=== PATIENT | female | born 1975 | race Caucasian/White ===

== ENCOUNTER 2017-12-07 00:15 | Outpatient (CLI) | payer BC, SELFPAY ==
--- NOTE | 2017-12-07 14:05 | DI.MAMMO_ITS ---
SYMPTOMS/DIAGNOSIS: 6 MO F/U LT BREAST, DUE FOR BILATERAL MAMMOGRAM: Mammograms were interpreted according to the usual protocol including computer analysis with CAD system, tomosynthesis and C view imaging. Comparison with prior examinations. Breast density B. No masses or microcalcifications are seen. There is nothing to suggest malignancy. IMPRESSION: Negative mammogram. Routine screening is recommended. Category I. MQSA ASSESSMENT OF FINDINGS: Negative. Category 1. Patient will receive a letter notifying them of these results. BI-RADS category B. There are scattered areas of fibroglandular density.
== END 2017-12-07 00:35 ==
PROVIDERS: PCP Internal Medicine; Visit Provider Nurse Practitioner Family
DX: Z12.31 Encounter for screening mammogram for malignant neoplasm of breast (principal); R92.8 Other abnormal and inconclusive findings on diagnostic imaging of breast; N64.59 Other signs and symptoms in breast
CPT/HCPCS: 77062; 77066; G0279

== ENCOUNTER 2017-12-07 15:24 | Outpatient (REF) | payer BC, SELFPAY ==
--- NOTE | 2017-12-07 14:45 | PAPFT_PTH ---
PATIENT: Isabel Gallardo LOC: [facility] U#:[id number] AGE/SX: 42/F ROOM: RE12/07/[address]: DARYN Garcia : 1975 BED: DIS: 12/07/2017 SPEC #: [id number] RECD: 12/07/17 17:11 STATUS: JESSICA REJorge #: [id number] EDUARDO: 12/07/17 14:[address]: Ginette Trinh DEPT: [facility] Cytology RECD BY: Kortney Fontenot ENTERED: 12/07/17 17:11 SP TYPE: PAPFT OTHR DR: Nathen Gan Tissues: 1 - CX/ENDOCX FOR PAP SMEARS Procedures: PAP THIN PREP/UVM Screening HPV DNA PROBE Comments: [id number]
== END 2017-12-07 15:44 ==
LOC: LBN 15:24
PROVIDERS: PCP Internal Medicine; Visit Provider Nurse Practitioner Family
DX: Z12.4 Encounter for screening for malignant neoplasm of cervix (principal); Z11.51 Encounter for screening for human papillomavirus (HPV)
CPT/HCPCS: 88142; 87624

== ENCOUNTER 2018-03-18 08:24 | Outpatient (REF) | payer BC, SELFPAY ==
[2018-03-18 15:18] LABS: Cholesterol 248 mg/dL (50-200); Glucose 88 mg/dL (70-100); HDL Cholesterol 87 mg/dL (40-60); LDL CHOLESTEROL 143 mg/dL (<100); T4 11.8 ug/dL (4.5-12.5); TSH 1.92 uIU/mL (0.358-3.74); Triglyceride 87 mg/dL (30-150)
== END 2018-03-18 08:44 ==
LOC: NCHCN 08:24
PROVIDERS: PCP Internal Medicine; Visit Provider Family Medicine
DX: Z13.220 Encounter for screening for lipoid disorders (principal)
CPT/HCPCS: 80061; 82947; 83721; 84436; 84443

== ENCOUNTER 2019-01-31 01:14 | Outpatient (CLI) | payer BC, SELFPAY ==
--- NOTE | 2019-01-31 13:00 | DI.MAMMO_ITS ---
EXAM: MG MAMMO SCREENING CLINICAL HISTORY: SCREENING TECHNIQUE: Bilateral full field digital CC and MLO mammographic images were obtained with 3D tomosyn thesis and utilizing computer aided detection (CAD). COMPARISON: Available for comparison. FINDINGS: Masses/Architectural Distortion: There is asymmetric tissue in the outer right breast seen on the aircraft maintenance technician niocaudad view. This area should be further evaluated with additional views and a right breast ultra sound. Microcalcifications: No suspicious pleomorphic-type are seen. Skin Thickening/Nipple Retraction: None. IMPRESSION: 1. Asymmetric breast tissue in the outer right breast as seen on the craniocaudad view. 2. Additional views of the right breast and right breast ultrasound are recommended for further evalu ation. BI-RADS Cat 0 - Assessment Incomplete: Need additional imaging evaluation Breast Density - Category B - Scattered areas of fibroglandular density A negative radiographic report should not delay biopsy if a dominant or clinically suspicious mass is present. Up to ten percent of cancers are not identified on mammography. A negative report may reinforce clinical impression. Adenosis and dense breasts may obscure an underlying neoplasm. False positive reports average 6 to 10%. Patient will receive a letter notifying them of these results.
== END 2019-01-31 01:34 ==
PROVIDERS: PCP Internal Medicine; Visit Provider Nurse Practitioner Family
DX: Z12.31 Encounter for screening mammogram for malignant neoplasm of breast (principal); R92.8 Other abnormal and inconclusive findings on diagnostic imaging of breast
CPT/HCPCS: 77063; 77067

== ENCOUNTER 2019-02-04 00:54 | Outpatient (CLI) | payer BC, SELFPAY ==
--- NOTE | 2019-02-04 09:13 | DI.MAMMO_ITS ---
EXAM: MG MAMMO SCREEN CALL BACK UNI CLINICAL HISTORY: F/U MAMMO, ASYMMETRIC TISSUE RT BREAST TECHNIQUE: Cc spot compression views with tomography were performed of the lateral right breast. COMPARISON: 2013 through 31 January 2019. FINDINGS: The additional views show no persistent mass or other suspicious abnormality. IMPRESSION: BI-RADS category 1, negative mammogram. Yearly screening mammography is recommended. BI-RADS Cat 1 - Negative. Breast Density - Category B - Scattered areas of fibroglandular density.
== END 2019-02-04 01:14 ==
PROVIDERS: PCP Internal Medicine; Visit Provider Nurse Practitioner Family
DX: Z12.31 Encounter for screening mammogram for malignant neoplasm of breast (principal); R92.8 Other abnormal and inconclusive findings on diagnostic imaging of breast; N64.59 Other signs and symptoms in breast
CPT/HCPCS: 77063; 77067

== ENCOUNTER 2019-02-10 17:16 | Outpatient (REF) | payer BC, SELFPAY ==
[2019-02-10 21:20] LABS: FREE T4 1.07 ng/dL (0.76-1.46); TSH 1.59 uIU/mL (0.36-3.74)
== END 2019-02-10 17:36 ==
LOC: NCHCN 17:16
PROVIDERS: PCP Internal Medicine; Visit Provider Internal Medicine
DX: Z00.00 Encounter for general adult medical examination without abnormal findings (principal); E03.9 Hypothyroidism, unspecified; E04.2 Nontoxic multinodular goiter; E66.9 Obesity, unspecified
CPT/HCPCS: 84439; 84443

== ENCOUNTER 2019-07-10 00:54 | Outpatient (CLI) | payer BC, SELFPAY ==
--- NOTE | 2019-07-10 14:37 | DI.US_ITS ---
EXAM: US PELVIS AND TRANSVAGINAL CLINICAL HISTORY: POSTMENOPAUSAL BLEEDING, M95.0. TECHNIQUE: Transabdominal and transvaginal pelvic ultrasound was performed using standard protocol. COMPARISON: No exams were available for comparison FINDINGS: KIDNEYS: Kidneys are symmetric in size. No evidence of renal calculi. No evidence of hydronephrosis. No renal mass or cyst identified. UTERUS: Position: Anteverted. Size: 1.3 x 3.1 x 4.2 cm Endometrium: 0.2 cm. Normal for patient's menstrual status. Myometrium: Unremarkable. Cervix: Unremarkable. OVARIES: Right: 1.8 x 1.1 cm Cyst or mass: None. Left: Not definitively visualized transabdominally or transvaginally. No left adnexal masses identified. DOPPLER: Color: Symmetric and uniform flow to the right ovary. No hyperemia. Duplex: Normal right ovarian arterial waveform visualized. CUL-DE-SAC: Free fluid: None. Other: None. IMPRESSION: 1. Normal sonographic appearance of the kidneys. 2. Normal-appearing uterus with endometrial stripe within normal limits. 3. Unremarkable right ovary. The left ovary was not definitively visualized sonographically. No lef t adnexal mass is identified sonographically. DATA REPOSITORY:
== END 2019-07-10 01:14 ==
PROVIDERS: PCP Internal Medicine; Visit Provider Nurse Practitioner Family
DX: N95.0 Postmenopausal bleeding (principal)
CPT/HCPCS: 76830; 76856

== ENCOUNTER 2020-02-09 15:11 | Outpatient (REF) | payer BC, SELFPAY ==
[2020-02-11 15:53] LABS: Patient Race White; SARS-CoV-2 RNA Undetected (Undetected); SARS-CoV-2 Specimen Source Nasal
== END 2020-02-09 15:31 ==
LOC: NCHCN 15:11
PROVIDERS: PCP Internal Medicine; Visit Provider Internal Medicine
DX: Z20.828 Contact with and (suspected) exposure to other viral communicable diseases (principal)
CPT/HCPCS: U0003

== ENCOUNTER 2020-04-07 18:03 | Outpatient (REF) | payer BC, SELFPAY ==
[2020-04-07 14:47] LABS: FREE T4 1.23 ng/dL (0.76-1.46); Glucose 91 mg/dL (74-106); TSH 1.61 uIU/mL (0.36-3.74)
[2020-04-07 15:12] LABS: Calculated LDL 108 mg/dL (<100); Cholesterol 208 mg/dL (<200); HDL Cholesterol 78 mg/dL (40-60); Triglyceride 110 mg/dL (<150)
== END 2020-04-07 18:23 ==
LOC: NCHCN 18:03
PROVIDERS: PCP Internal Medicine; Visit Provider Internal Medicine
DX: Z00.00 Encounter for general adult medical examination without abnormal findings (principal); E03.9 Hypothyroidism, unspecified; E16.2 Hypoglycemia, unspecified
CPT/HCPCS: 80061; 82947; 84439; 84443

== ENCOUNTER 2020-06-07 15:11 | Outpatient (REF) | payer BC, SELFPAY ==
--- NOTE | 2020-06-07 13:30 | PAPFT_PTH ---
PATIENT: Isabel Gallardo LOC: [facility] U#:[id number] AGE/SX: 44/F ROOM: RE06/07/[address]: DARYN Garcia : 1975 BED: DIS: 06/07/2020 SPEC #: [id number] RECD: 06/07/20 18:13 STATUS: JESSICA REQ #: [id number] EDUARDO: 06/07/20 13:[address]: iGnette Trinh DEPT: [facility] Cytology RECD BY: Kortney Fontenot ENTERED: 06/07/20 18:13 SP TYPE: PAPFT OTHR DR: Nathen Gan Tissues: 1 - CX/ENDOCX FOR PAP SMEARS Procedures: PAP THIN PREP/UVM Screening HPV DNA PROBE Comments: [id number]
== END 2020-06-07 15:12 | disposition home or self-care (01) ==
LOC: LBN 15:11
PROVIDERS: PCP Internal Medicine; Visit Provider Nurse Practitioner Family
DX: Z12.4 Encounter for screening for malignant neoplasm of cervix (principal); Z11.51 Encounter for screening for human papillomavirus (HPV)
CPT/HCPCS: 88142; 87624

== ENCOUNTER 2020-07-12 01:08 | Outpatient (CLI) | payer BC, SELFPAY ==
--- NOTE | 2020-07-12 06:15 | DI.MAMMO_ITS ---
Exam(s) MAMMO SCREENING EXAM: MAMMO SCREENING CLINICAL HISTORY: screening,Z12.39 TECHNIQUE: Bilateral full field digital CC and MLO mammographic images were obtained with 3D tomosyn thesis and utilizing computer aided detection (CAD). COMPARISON: Available for comparison. FINDINGS: Masses/Architectural Distortion: None seen. Microcalcifications: No suspicious pleomorphic-type are seen. Skin Thickening/Nipple Retraction: None. IMPRESSION: 1. No significant interval change with no specific features of malignancy noted. 2. Unless there is more urgent need, screening mammography is recommended, as per [place] [employer] guidelines. BI-RADS Category 1 - Negative Breast Density - Category B - Scattered areas of fibroglandular density Breast density category C or D implies that the patient has dense breast tissue. Dense breast tissue is very common and is not abnormal but dense breast tissue can make it harder to find cancer on a ma mmogram. Also, dense breast tissue may increase their breast cancer risk. This information about the result of the mammogram report was provided to the patient to raise their awareness. Use this report when you speak with the patient about their risks for breast cancer, which includes their family hist ory. At that time, you may recommend for more screening tests (Ultrasound or MRI) as they might be us eful based on their risk. A negative radiographic report should not delay biopsy if a dominant or clinically suspicious mass is present. Up to ten percent of cancers are not identified on mammography. A negative report may reinforce clinical impression. Adenosis and dense breasts may obscure an underlying neoplasm. False positive reports average 6 to 10%. Patient will receive a letter notifying them of these results.
== END 2020-07-12 01:28 ==
PROVIDERS: PCP Internal Medicine; Visit Provider Nurse Practitioner Family
DX: Z12.31 Encounter for screening mammogram for malignant neoplasm of breast (principal)
CPT/HCPCS: 77063; 77067

== ENCOUNTER 2020-08-31 13:01 | Outpatient (CLI) | payer BC, SELFPAY ==
--- NOTE | 2020-08-31 | DI.RAD_ITS ---
Exam(s) XR KNEE LT 3V AP,LAT,JUSTIN EXAM: XR KNEE LT 3V AP,LAT,JUSTIN CLINICAL HISTORY: KNEE PAIN M25.562 TECHNIQUE: COMPARISON: No exams were available for comparison FINDINGS: Three views were obtained. There does not appear to be a significant knee joint effusion. No eviden ce of fracture or dislocation. IMPRESSION: RADIATION DOSE DELIVERED: Total DLP
== END 2020-08-31 13:21 ==
PROVIDERS: PCP Internal Medicine; Visit Provider Family Medicine
DX: M25.562 Pain in left knee (principal)
CPT/HCPCS: 73562

== ENCOUNTER 2021-09-26 19:08 | Outpatient (REF) | payer BC, SELFPAY ==
[2021-09-28 11:12] LABS: Hepatitis C Ab w Rflx HCV PCR Negative (Negative)
[2021-09-28 11:24] LABS: HIV-1/2 Ag & Ab Screen Negative (Negative)
== END 2021-09-26 19:09 | disposition home or self-care (01) ==
LOC: NCHCN 19:08
PROVIDERS: PCP Internal Medicine; Visit Provider Family Medicine
DX: E03.9 Hypothyroidism, unspecified (principal); E66.3 Overweight; Z11.4 Encounter for screening for human immunodeficiency virus [HIV]; Z11.59 Encounter for screening for other viral diseases
CPT/HCPCS: 86803; 87389; 84443

== ENCOUNTER → 2021-10-21 00:25 | Outpatient (CLI) | payer BC, SELFPAY ==
--- NOTE | 2021-10-21 14:33 | DI.MAMMO_ITS ---
Exam(s) MAMMO SCREENING EXAM: MAMMO SCREENING CLINICAL HISTORY: screening TECHNIQUE: Mammograms were interpreted according to the usual protocol including computer analysis w [employer] CAD system, tomosynthesis and C-view imaging. COMPARISON: 2013 through 2020 FINDINGS: The breasts are composed of scattered fibroglandular densities, Breast Density category B. No suspicious masses or suspicious microcalcifications are seen. No skin thickening or abnormal axillary lymph nodes are seen. There has been no significant change from prior exams. IMPRESSION: BI-RADS Category 1, Negative mammogram Yearly screening mammography is recommended. Breast Density - Category B, scattered fibroglandular densities. A negative radiographic report should not delay biopsy if a dominant or clinically suspicious mass is present. Up to ten percent of cancers are not identified on mammography. A negative report may reinforce clinical impression. Adenosis and dense breasts may obscure an underlying neoplasm. False positive reports average 6 to 10%. Patient will receive a letter notifying them of these results.
== END ==
PROVIDERS: PCP Internal Medicine; Visit Provider Nurse Practitioner Family
DX: Z12.31 Encounter for screening mammogram for malignant neoplasm of breast (principal)
CPT/HCPCS: 77063; 77067

== ENCOUNTER 2022-05-18 12:08 | Day surgery (SDC) | payer BC, SELFPAY ==
--- NOTE | 2022-05-18 06:37 | W.PM.DSUDISC ---
Date of service: 05/18/22 Time of Service: 15:52 Discharge Plan Disposition Patient Disposition: Home Condition: Good Discharge Details Reason For Visit: screening colonoscopy Attending Provider: Wesly Gunderson Primary Care Provider: Nathen Gan Home Meds and New Rx's Prescriptions: Continued levothyroxine 50 MCG tablet 75 mcg PO DAILY ferrous gluconate 225 mg (27 mg iron) tablet 225 mg PO DAILY cholecalciferol (vitamin D3) 25 mcg (1,000 unit) capsule 25 mcg PO DAILY Discontinued bisacodyl [Dulcolax (bisacodyl)] 5 mg tablet,delayed release (DR/EC) 5 mg PO ONCE Qty: 4 0RF Rx Instructions: Take according to provider's instructions for colonoscopy prep. polyethylene glycol 3350 17 gram/dose powder 17 g PO ONCE Qty: 238 0RF Rx Instructions: To be taken as directed by prescriber's office for colonoscopy prep. Discharge Instructions Instructions: Colorectal Polyps (GEN), Diverticulosis (GEN), Diverticulosis Diet (GEN) Additional Instructions: Isabel, we were able to complete your colonoscopy today without any difficulty. You had 2 polyps in your cecum, and 1 polyp in another part of your large intestine. I removed these all completely. I will notify you when I have the results of the pathology report. You also have some mild diverticulosis. As I mentioned before the procedure, these are common weak spots in the wall of the large intestine. On occasion they cause pain and infection. They can also bleed. Based on the character of yours, I suspect that they are largely asymptomatic. I provided some information here regarding general management of diverticular disease. 1. If tolerated, consume a soft, low fiber diet for 1-2 days. 2. Do not drive, drink alcohol, operate machinery, make critical decisions, or do activities that require coordination or balance for 24 hours. 3. Because air was put into your colon during the procedure, expelling air from your rectum (passing gas or farting) is normal. 4. You may not have a bowel movement for 1-3 days because of the colonoscopy prep. This is normal. 5. Go directly to the emergency room if you notice any of the following: Develop chills (warm to touch), or if you have a thermometer and your temperature is above 101 Difficulty breathing or difficultly swallowing Persistent vomiting Severe abdominal pain, other than gas cramps Severe chest pain Black, tarry stools Any bleeding ? exceeding one tablespoon 6. Call your physician if the site where your intravenous was started becomes red, swollen, painful, and warm to touch. 7. Your physician has reviewed your pre-procedure medications. Please continue to take those medications as previously ordered. You will be given specific information/education regarding any changes to your medications before leaving. Stand Alone Forms: Teddy Watkins (NINFAU) Activity:: Activity as Tolerated Diet:: As Tolerated DS: Diagnosis Discharge Diagnosis (1) Screening for colon cancer: Status: Acute Asessment and Plan: Follow-up on polypectomy results
--- NOTE | 2022-05-18 06:39 | W.COLOREPORT ---
Date of service: 05/18/22 Time of Service: 15:53 Colonoscopy Report Date of procedure: 05/18/22 Pre-op diagnosis general: Screening colonoscopy Post-op diagnosis procedure note: other (Diverticulosis, cecal polyps, colon polyp) Procedure: Colonoscopy Surgeon: Wesly Gunderson Anesthesia Type: General:No Airway Estimated blood loss (mL): 20 Pathology: other (Cecal polyps x2, colon polyp) Complications: None Disposition: same day Indications: Isabel is a 46-year-old woman here for her first screening colonoscopy Prep: Miralax/Dulcolax Procedure Start Time: 14:42 Procedure End Time: 15:05 Retraction Time: 12 Findings: Diverticulosis, cecal polyps x2, colon polyp Procedure Description: After the induction of monitored anesthetic care, and with the patient in left lateral decubitus position, I began by performing an external anorectal exam.? Perineum and skin were normal, as was the anal verge.? There was no evidence of external hemorrhoids.? Next, I performed a digital rectal exam.? I did not appreciate any abnormal findings.? Next, I advanced a colonoscope into the rectal vault.? I performed retroflexion.? This was normal.? Using insufflation, I then advanced the colonoscope beyond the rectal folds and into the sigmoid colon before advancing towards the cecum.? There was sigmoid diverticulosis the quality of the prep was adequate.? The scope was noted to be in the cecum by identification of the ileocecal valve and appendiceal orifice.? There were 2 polyps in the cecum. Both were less than 0.5 cm. Both were removed with cold forcep polypectomy. I then began withdrawing the colonoscope using repeated irrigation as necessary for full evaluation of the colonic mucosa. There was another polyp in the descending colon. This was less than 0.25 cm. I removed this with cold forcep polypectomy. There was minimal bleeding. Once the scope was withdrawn to the level of the rectum, great care was taken to examine portions of the rectal folds.? Finally, the scope was withdrawn and the patient was brought to the same-day surgery recovery unit as the anesthetic wore off. ?The findings and instructions were shared with the patient prior to discharge.
[2022-05-18 12:18] VITALS: BP 113/68; PULSE 86; RESP 18; TEMP 36.6; O2SAT 98
[2022-05-18] MEDS: Lactated Ringers 1,000 ML 80 ML IV (12:45)
--- NOTE | 2022-05-18 14:13 | W.ANESPRE ---
General Info Date of Service Date Performed: 05/18/22 Height: 5 ft 4 in Weight: 83 kg Body Mass Index (BMI): 31.4 Surgical Procedure: Operation Date: 05/18/22 14:05 Proposed Procedure Side Surgeon marsha Gunderson MD Meds Allergies and Home Medications Allergies Allergy/AdvReac Type Severity Reaction Status Date / Time No Known Drug Allergies Allergy Verified 05/18/22 12:17 Home Medication Medication Instructions Recorded levothyroxine 50 mcg tablet 75 mcg PO DAILY 09/01/14 cholecalciferol (vitamin D3) 25 25 mcg PO DAILY 01/03/22 mcg (1,000 unit) capsule ferrous gluconate 225 mg (27 mg 225 mg PO DAILY 01/03/22 iron) tablet Current Visit Medications: Current Medications Generic Name Dose Route Start Last Admin Trade Name Freq PRN Reason Stop Dose Admin Ringer's Solution 1,000 mls @ 80 mls/hr 05/18/22 06:00 05/18/22 12:45 IV 06/16/22 23:59 80 mls/hr INFUSION KARINE Administration IV Miscellaneous Supplies 1 each 05/18/22 06:00 Iv Access IV 06/16/22 23:59 DIRECTED KARINE Sodium Chloride 0 ml 05/18/22 06:00 Normal Saline Flush 10 Ml Syr IV 06/16/22 23:59 PRN PRN Sodium Chloride 0 ml 05/18/22 06:00 Normal Saline 10 Ml Vial IJ 06/16/22 23:59 DIRECTED PRN Sterile Water 0 ml 05/18/22 06:00 Water,Injection,Sterile 10 Ml Vial IJ 06/16/22 23:59 DIRECTED PRN PFSH Active Problems Active Problems: Problem Status Onset Code Early menopause 09/01/14 E28.319 Family history of breast cancer 10/15/15 Z80.3 Hypothyroid 09/01/14 E03.9 Screening for colon cancer Z12.11 Surgical History Surgical History Cervical Procedure (~1997) LEEP section History of hand surgery right hand Tobacco Smoking/Tobacco Use Status: Former Tobacco Use Alcohol Alcohol Intake: current Alcohol intake frequency: 0-2 drinks per day Alcohol type: beer Substance Use Substance use type: does not use Prental History History 3 Para Hx # Term Pregnancies 3 Multiple births Hx # Pregnancies Ectopic pregnancies AB induced Hx Number of Living Children AB spontaneous Vital Signs and Lab Results Vital Signs Most Recent Vital Signs in EMR: Most Recent Vital Signs Temp Pulse Resp BP Pulse Ox 36.6 C 86 18 113/68 98 05/18/22 12:18 05/18/22 12:18 05/18/22 12:18 05/18/22 12:18 05/18/22 12:18 Lab Results Blood Type / Crossmatch: No Data to Display Complete Blood Count: No Data to Display Complete Metabolic Panel: No Data to Display Liver Function Panel: No Data to Display Coagulation Panel: No Data to Display Cardiac Panel: No Data to Display Arterial Blood Gas: No Data to Display Venous Blood Gas: No Data to Display Pancreas Panel: No Data to Display Thyroid Panel: No Data to Display Infectious Disease: No Data to Display Blood Cultures: No Data to Display Toxicology Panel: No Data to Display Panel: No Data to Display Anesthesia Assessment and Plan Anesthesia History Personal History: PONV Family History: No Family History of Anesthesia Complications Exercise Tolerance Exercise Tolerance: Metabolic Equivalents>4 Pertinent Negatives Pertinent Negatives: No Symptoms of GERD, No Major Cardiovascular Symptoms or Complaints, No Major Pulmonary Symptoms or Complaints and No History of CVA/TIA Cardiac & Pulmonary Exam Cardiac Exam: Normal S1/S2 Heart Sounds Pulmonary Exam: Clear Bilateral Breath Sounds Implantable Cardiac Device Does patient have a Pacemaker or an ICD?: No Airway Exam Known Difficult Airway: No Mallampati Class: 3 Mouth Opening: Normal (> 3cm) Thyromental Distance: Less than 3 cm Neck Range of Motion: Full ROM Neck Circumference: Normal Teeth Condition: Normal Dentition ASA Classification ASA Score: ASA 2 Emergency Case?: No NPO Status NPO Status: NPO Clears >2 hours, Solids >8 hours Status Status: Not Relevant due to Medical History (menopausal) Anesthesia Plan Resuscitation Status: Full Code Anesthesia Technique: General Anesthesia Airway Planned: Natural Airway Monitors Used: Standard Monitors
[2022-05-18 14:37] VITALS: BMI 31.4
--- NOTE | 2022-05-18 14:54 | BOWEL_PTH ---
PATIENT: Isabel Gallardo LOC: [facility] U#:[id number] AGE/SX: 46/F ROOM: RE05/18/[address]: Wesly Gunderson MD : 1975 BED: DIS: 05/18/2022 SPEC #: [id number] RECD: 05/18/22 18:22 STATUS: JESSICA RE #: [id number] EDUARDO: 05/18/22 14:[address]: Wesly Gunderson DEPT: Surgical Specimen RECD BY: Kortney Fontenot ENTERED: 05/18/22 18:23 SP TYPE: Bowel OTHR DR: Nathen Gan Tissues: 1 - BIOPSY BOWEL 2 - BIOPSY BOWEL Procedures: GROSS AND MICRO LEVEL 4 Comments: [id number]
[2022-05-18 15:10] VITALS: BP 107/70; PULSE 79; RESP 16; TEMP 36.3; O2SAT 98
[2022-05-18 16:02] VITALS: BP 109/77; PULSE 75; RESP 17; TEMP 36.4; O2SAT 97
--- NOTE | 2022-05-19 05:29 | W.ANESPOSTOP ---
Postoperative Evaluation Date, Time and Location Date Performed: 05/18/22 Time Performed: 15:33 Patient Location: Day Surgery Unit Vital Signs Most Recent Imported Vital Signs: Most Recent Vital Signs Temp Pulse Resp BP Pulse Ox 36.4 C L 75 17 109/77 97 05/18/22 16:02 05/18/22 16:02 05/18/22 16:02 05/18/22 16:02 05/18/22 16:02 Pain Score Most Recent Pain Score: Most Recent Pain Score Pain Level 0 05/18/22 16:02 Assessment Mental Status: Awake (Alert & Oriented to Patient Baseline) Airway and Respiratory Function: Patent airway with normal (patient baseline) respiratory exam Cardiovascular Function: Hemodynamically Stable Hydration Status: Adequately Hydrated Nausea & Vomiting: No Nausea or Vomiting Pain: Pt. Denies Any Pain Peripheral Nerve Block: Patient did not receive a nerve block
== END 2022-05-18 16:25 | disposition home or self-care (01) ==
LOC: SUR 12:08
PROVIDERS: PCP Internal Medicine; Visit Provider Surgery
PROC: 0DJD8ZZ Inspection of Lower Intestinal Tract, Via Natural or Artificial Opening Endoscopic (ICD-10-PCS; CPT 45378; principal; 2022-05-18 14:00)
DX: Z12.11 Encounter for screening for malignant neoplasm of colon (principal); K63.5 Polyp of colon; K57.30 Diverticulosis of large intestine without perforation or abscess without bleeding
CPT/HCPCS: 45380; 88305; J2405

== ENCOUNTER → 2023-10-04 00:16 | Outpatient (CLI) | payer BC, SELFPAY ==
--- NOTE | 2023-10-04 | DI.DEXA_ITS ---
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 COMPARISON: No exams were available for comparison FINDINGS: Performed on a Hologic unit. Lateral image: No compression fracture evident. Lumbar Spine total T-score: -0.7 Hip total T-score:-1.1 Independent reading at the level of the femoral neck yields T-score of -1.8 Forearm total T-score: -1.1 IMPRESSION: Bone mineral density measures in the osteopenia range. Fracture risk is moderate. Note: Any spine fracture indicates 5x risk for subsequent spine fracture and 2x risk for subsequent h ip fracture. World Health Organization criteria for BMD interpretation classify patients: Normal...... T- Score at or above -1.0 Osteopenic... T- Score between -1.0 and -2.5 Osteoporosis... T-Score at or below -2.5
== END ==
PROVIDERS: PCP Family Medicine; Visit Provider Family Medicine
DX: E28.39 Other primary ovarian failure (principal); M85.89 Other specified disorders of bone density and structure, multiple sites
CPT/HCPCS: 77080

== ENCOUNTER 2023-10-18 12:20 | Outpatient (CLI) | payer BC, SELFPAY ==
[2023-10-18 10:10] LABS: Abs Immature Grans 0.02 10^3/uL (0.0-0.06); Absolute Basophil Count 0.03 10^3/uL (0.0-0.2); Absolute Eosinophil Count 0.03 10^3/uL (0.0-0.7); Absolute Lymphocyte Count 1.86 10^3/uL (1.2-3.4); Absolute Neutrophil Count 4.06 10^3/uL (1.2-6.7); Basophils % 0.5 %; Eosinophils % 0.5 %; HCT 43.9 % (36.0-46.0); HGB 14.8 g/dL (11.2-15.7); Immature Grans % 0.3 %; Lymphocytes % 29.5 %; MCH 31.4 pg (27.0-33.0); MCHC 33.7 % (32.0-36.0); MCV 93 fL (80-95); MPV 9.3 fL (8.0-11.0); Monocytes % 4.8 %; Neutrophils % 64.4 %; Platelet Count 314 10^3/uL (130-400); RBC 4.72 10^6/uL (3.93-5.22); RDW 11.8 % (11.7-14.6)
[2023-10-18 11:00] LABS: ALT 35 U/L (14-59); AST 18 U/L (15-37); Alkaline Phosphatase 101 U/L (46-116); Anion Gap 8.9 mmol/L (3-11); BUN 8 mg/dL (7-18); Bilirubin, Total 0.58 mg/dL (0.2-1.0); CO2 29.1 mmol/L (21.0-32.0); CREATININE 0.9 mg/dL (0.55-1.02); Calcium 9.6 mg/dL (8.5-10.1); Calculated LDL 129 mg/dL (<100); Chloride 102 mmol/L (98-107); Cholesterol 231 mg/dL (<200); Estimated GFR 77.88 (mL/min/1.73m2); Glucose 91 mg/dL (74-106); HDL Cholesterol 75 mg/dL (40-60); Potassium 3.9 mmol/L (3.5-5.1); Sodium 140 mmol/L (136-145); TSH 2.26 uIU/Ml (0.36-3.74); Triglyceride 139 mg/dL (<150)
== END 2023-10-18 12:21 | disposition home or self-care (01) ==
LOC: LBO 12:22
PROVIDERS: PCP Family Medicine; Visit Provider Family Medicine
DX: E03.9 Hypothyroidism, unspecified (principal); E78.5 Hyperlipidemia, unspecified
CPT/HCPCS: 36415; 80053; 80061; 84443; 85025

== ENCOUNTER 2025-02-18 15:48 | Outpatient (REF) | payer BC, SELFPAY ==
[2025-02-18 21:38] LABS: HCT 38.4 % (36.0-46.0); HGB 12.9 g/dL (11.2-15.7); MCH 30.8 pg (27.0-33.0); MCHC 33.6 % (32.0-36.0); MCV 92 fL (80-95); MPV 10.1 fL (8.0-11.0); Platelet Count 348 10^3/uL (130-400); RBC 4.19 10^6/uL (3.93-5.22); RDW 11.8 % (11.7-14.6); RDW-SD 39.7 fL; WBC 8.32 10^3/uL (4.4-10.8)
[2025-02-18 21:53] LABS: ALT 21 U/L (10-49); AST 19 U/L (<34); Albumin 4.3 g/dL (3.2-5.0); Alkaline Phosphatase 87 U/L (46-116); Anion Gap 7.8 mmol/L (3-11); BUN 11 mg/dL (9-23); Bilirubin, Total 0.3 mg/dL (0.2-1.2); CO2 29.2 mmol/L (20.0-31.0); Calcium 9.1 mg/dL (8.3-10.6); Chloride 105 mmol/L (98-107); Glucose 85 mg/dL (74-106); Potassium 4.3 mmol/L (3.5-5.1); Sodium 142 mmol/L (136-145); Total Protein 7.1 g/dL (5.7-8.2)
== END 2025-02-18 15:49 | disposition home or self-care (01) ==
LOC: NCHCN 15:48
PROVIDERS: PCP Family Medicine; Visit Provider Family Medicine
DX: R19.7 Diarrhea, unspecified (principal)
CPT/HCPCS: 80053; 85027

== ENCOUNTER 2025-02-19 08:39 | Outpatient (REF) | payer BC, SELFPAY ==
[2025-02-20 13:12] LABS: Campylobacter PCR Negative (Negative); Shiga Toxin PCR Negative (Negative); Shigella/Enteroinvasive Ecoli Negative (Negative)
== END 2025-02-19 08:40 | disposition home or self-care (01) ==
LOC: NCHCN 08:39
PROVIDERS: PCP Family Medicine; Visit Provider Family Medicine
DX: R19.7 Diarrhea, unspecified (principal)
CPT/HCPCS: 87015; 87269; 87272; 87505; 83993

== ENCOUNTER → 2025-02-25 00:04 | Outpatient (CLI) | payer BC, SELFPAY ==
--- NOTE | 2025-02-25 | DI.MAMMO_ITS ---
Exam(s) MAMMO SCREENING EXAM: MAMMO SCREENING CLINICAL HISTORY: SCREENING,Z12.31 TECHNIQUE: Bilateral full field digital CC and MLO mammographic images were obtained with 3D tomosynthesis and utilizing computer aided detection (CAD). COMPARISON: Comparison is made with prior examinations. FINDINGS: Masses/Architectural Distortion: No suspicious masses or areas of architectural distortion are present. Microcalcifications: No suspicious pleomorphic-type are seen. Skin Thickening/Nipple Retraction: None. IMPRESSION: 1. No significant interval change with no specific features of malignancy noted. 2. Unless there is more urgent need, screening mammography is recommended, as per [employer] guidelines. BI-RADS Category 1 - Negative Breast Density - Category B - There are scattered areas of fibroglandular density. Breast density Category C or D implies that the patient has dense breast tissue. Dense breast tissue can make it harder to find cancer on a mammogram. Dense breast tissue is also associated with an increased risk of breast cancer. This information about the result of the mammogram report was provided to the patient to raise their awareness. Use this report when you speak with the patient about their risks for breast cancer, which includes their family history. At that time, you may recommend additional screening tests (Ultrasound or MRI) as these tests may add significant information. A negative radiographic report should not delay biopsy if a dominant or clinically suspicious mass is present. Up to ten percent of cancers are not identified on mammography. A negative report may reinforce clinical impression. Adenosis and dense breasts may obscure an underlying neoplasm. False positive reports average 6 to 10%. Patient will receive a letter notifying them of these results.
== END ==
PROVIDERS: PCP Family Medicine; Visit Provider Family Medicine
DX: Z12.31 Encounter for screening mammogram for malignant neoplasm of breast (principal)
CPT/HCPCS: 77063; 77067